=== PATIENT | male | born 2000 | race African-American/Black ===

== ENCOUNTER 2020-05-21 11:15 | Observation (INO) | payer OTHER ==
[~2020-05-21] VITALS: Ht 180.3 cm; Wt 72.7 kg
--- NOTE | 2020-05-21 11:15 | NUR ---
Pt to room # 6 via EMS stretcher with DCI guards x's 2 at bedside
--- NOTE | 2020-05-21 12:00 | NUR ---
TOLERATED LAB WORK, EKG AND RADIOLOGY EXAMS WITHOUT INCIDENT, GUARDS REMAIN AT BEDSIDE.
[2020-05-21 12:03] LABS: HEMATOCRIT 43.5 % (39.0-50.0); HEMOGLOBIN 13.8 g/dl (14.0-18.0); IMMATURE GRANULOCYTES 0.3 % (0.0-5.0); MEAN CELL VOLUME 90.2 fL CALC (80.0-100.0); MEAN CORPUSCULAR HGB 28.6 pG CALC (26.0-32.0); MEAN CORPUSCULAR HGB CONC 31.7 g/dL CAL (32.0-36.0); NEUT# 2.01 thou/uL (1.82-7.42); RED BLOOD COUNT 4.82 mill/uL (4.70-6.10); RED CELL DISTRI WIDTH 11.9 % (11.5-15.5)
[2020-05-21 12:10] LABS: ALBUMIN 4.4 g/dL (3.2-5.0); ALKALINE PHOSPHATASE 67 u/l (38-126); ANION GAP 9 (6-22 (CALC)); BILIRUBIN, TOTAL 0.7 mg/dL (0.0-1.4); BUN 10 mg/dL (9-20); BUN/CREATININE RATIO 12 (12-20 (CALC)); CARBON DIOXIDE 29 mmol/l (22-30); CHLORIDE 103 mmol/l (95-108); CREATININE 0.8 mg/dL (0.7-1.3); GFR > 60 ML/MIN (>=60 (CALC)); GFR FOR AFR.AMER. > 60 ML/MIN (>=60 (CALC)); LIPASE 65 u/l (23-300); POTASSIUM 4.2 mmol/l (3.5-5.1); SGOT/AST 43 u/l (17-59); SODIUM 136 mmol/l (137-146); TOTAL PROTEIN 7.1 g/dL (6.3-8.2)
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
--- NOTE | 2020-05-21 13:15 | NUR ---
PT RESTING NO S/S OF DISTRESS NOTED, GUARDS REMAIN AT BEDSIDE
--- NOTE | 2020-05-21 13:42 | NUR ---
PT AWARE OF NPO AND REASON, WILL CONTINUE TO MONITOR
--- NOTE | 2020-05-21 14:17 | NUR ---
Mattress Finisher received call from KIMBERLY Wilkerson regarding MD wanting direction on OBS vs INPATIENT - sba underwriter recommends OBS status based on information available at this itme
--- NOTE | 2020-05-21 14:20 | NUR ---
EAR IRRIGATION PERFORMED PER DR WALTON ORDER. MODERATE CERUMEN REMOVED VIA ELEPHANT EAR. TOLERATED PROCEDURE WELL.
--- NOTE | 2020-05-21 15:34 | NUR ---
PT REMAINS IN RADIOLOGY FOR ECHO, AWARE OF PLANND ADMISSION.
--- NOTE | 2020-05-21 15:37 | NUR ---
REPORT CALLED TO TUCKER AMARO ON MED SURG
[2020-05-21 15:47] VITALS: BP 143/91
--- NOTE | 2020-05-21 15:56 | NUR ---
PT TRANSFERRED FRM US TO MED SURG VIA STRETDHER WITH TELE IN PLACE AND GUARDS AT BEDSIDE, ALL BELONGINGS SENT WITH PATIENT.
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
--- NOTE | 2020-05-21 19:30 | NUR ---
REPORT RECEIVED Sherri VAUGHN RN; PT DENIES PAIN OR DISCOMFORT; GUARDS X2 AT BEDSIDE; RT ANKLE SHACKLED TO BED, FULL ROM; TELE MONITOR IN PLACE, SB 40S, PER ED MONITORING; #18 [facility] EMS SITE, WITHOUT REDNESS OR EDEMA NOTED, IVF INFUSING WITHOUT DIFFICULTY; PT REQUESTING TO TAKE A SHOWER; SET UP PROVIDED; WILL CONTINUE TO MONITOR.
--- NOTE | 2020-05-21 20:30 | NUR ---
TELE MONITOR APPLIED AND IVF STARTED; PT RT ANKLE SHACKLED TO BED, FULL ROM; PT CONTINUES TO DENY PAIN OR DISCOMFORT; CALL HILTON WITHIN REACH; WILL CONTINUE TO MONITOR.
[2020-05-21 23:53] VITALS: BP 143/72
--- NOTE | 2020-05-22 01:30 | NUR ---
PT UP TO BRP; GUARDS X2 AT BEDSIDE; PT DENIES PAIN OR DISCOMFORT; CALL [facility] WITHIN REACH; WILL CONTINUE TO MONITOR.
[2020-05-22 05:21] VITALS: BP 101/57
--- NOTE | 2020-05-22 05:24 | NUR ---
PT RESTING WITH EYES CLOSED; AROUSED EASILY TO VERBAL STIMULI; GUARDS X2 AT BEDSIDE; DENIES PAIN OR DISCOMFORT; CALL [facility] WITHIN REACH; WILL CONTINUE TO MONITOR.
[2020-05-22 05:38] LABS: CHOLESTEROL HDL RATIO 2.3 (<4.4 (CALC)); MAGNESIUM 1.9 mg/dL (1.6-2.3)
[2020-05-22 08:30] VITALS: BP 120/72
--- NOTE | 2020-05-22 08:30 | NUR ---
ASSESSMENT DONE. TELE IN PLACE. NO S/S OF DISTRESS NOTED. RESPS EVEN AND UNLABORED. PT STATED PAIN IN CHEST BUT DENIES ANY MEDICATION AT THIS TIME. X2 GAURDS IN ROOM. PT DENIES ANY NEEDS AT THIS TIME. CALL LIGHT IN REACH.
--- NOTE | 2020-05-22 10:32 | NUR ---
REPORT GIVEN TO FRANKI THAT PT IS GOING TO BE DC.
--- NOTE | 2020-05-22 11:30 | NUR ---
Discharge instructions given. Patient verbalizes understanding of same. Discharged in stable condition via Wheelchair to *Other with staff X2 MARJ. All belongings sent with pt.
== END 2020-05-22 11:30 | DRG 313 ==
LOC: ED 11:15 → ED-I 14:00 → ED 14:16 → ED-I 14:17 → MS2 14:51
PROVIDERS: Family Medicine; ADMIT Internal Medicine; ATTEND Internal Medicine
DX: R07.89 Other chest pain (principal); R00.1 Bradycardia, unspecified; Y04.0XXA Assault by unarmed brawl or fight, initial encounter; Y92.149 Unspecified place in prison as the place of occurrence of the external cause; Z11.59 Encounter for screening for other viral diseases
CPT/HCPCS: G0378; Q9967